=== PATIENT | female | born 1985 | race Caucasian/White ===

== ENCOUNTER 2017-07-19 14:12 | Emergency (ER) | payer MEDICAID, OTHER ==
[~2017-07-19] VITALS: Ht 154.9 cm; Wt 50.0 kg
[~2017-07-19 14:12] MED LIST: ACET500C5 PO; PREN1TAB49 PO
[2017-07-19 14:20] VITALS: Ht 154.9 cm; Wt 50.0 kg
--- NOTE | 2017-07-19 15:28 | ERD ---
ER Documentation Chief Complaint Date/Time DATE: 07/19/17 TIME: 15:21 Chief Complaint felt dizzy,garza after having "powder" sprayed in [place] for bed bugs HPI This is a 32 yo F who presents to ED with multiple complaints after potential exposure to powdered insecticide yesterday. Patients states that she has been complaining of bedbugs in her apartment for some time. Her landlord became very angry and had someone laid down which she thinks is powdered insecticide in the home along the wall boards, bathroom and beds. She states that this was done yesterday. Over the past 24 hours she has noted some mild headache and upset stomach. She states the symptoms are improved when she is not in the apartment. She states that this was laid down when her and her children were in the apartment. She denies any rash or difficulty breathing. She states the symptoms are improved upon arrival. She states that Department of Public Health was out yesterday and saw this but stated that they could not do anything for her. ROS All systems reviewed and are negative except as per history of present illness. Medications Home Meds Active Scripts Acetaminophen* (Tylophen*) 500 Mg Capsule, 1 CAP PO Q6H Y for PAIN, #30 CAP Prov:KEI SPARROW MD 05/14/15 Reported Medications Vits W-Ca,Fe,Fa(<1MG) () 1 Tab Tablet, 1 TAB PO DAILY 08/07/12 Allergies Allergies: Coded Allergies: No Known Allergy (Verified , 05/14/15) PMhx/Soc History of Surgery: No Anesthesia Reaction: No Hx Neurological Disorder: No Hx Respiratory Disorders: No Hx Cardiac Disorders: No Hx Psychiatric Problems: No Hx Miscellaneous Medical Probl: No Hx Alcohol Use: No Hx Substance Use: No Hx Tobacco Use: No FmHx Family History: No diabetes Physical Exam Vitals Vital Signs Date Time Temp Pulse Resp B/P Pulse Ox O2 Delivery O2 Flow Rate FiO2 07/19/17 14:20 98.1 92 18 130/67 99 Physical Exam General: Well developed, well nourished, no acute distress Head: Normocephalic, atraumatic. Eyes: Pupils equally reactive, EOM intact ENT: Moist mucous membranes Neck: Supple, no lymphadenopathy Respiratory: Lungs clear bilaterally, no distress Cardiovascular: RRR, no murmurs, rubs, or gallops Abdominal: Soft, non-tender, non-distended, no peritoneal signs : Deferred MSK: No edema, no unilateral swelling, 5/5 strength Neurologic: Alert and oriented, moving all extremities, normal speech, no focal weakness, no cerebellar signs Skin: No rash Psych: Normal mood Procedures/MDM This is a 32-year-old female who has been exposed to noxious stimuli. She does show me pictures that appear to be some white powdery substance laid about her apartment and around her batting. This is presumed to be some form of insecticide. However she does not know what was laid down and does not have contact information to her landlord at this time. It seems odd to me that this will be done with her and her children in the apartment. She states that the landlord was very upset and using profanity when laying the substance down. From a medical standpoint I do not believe the patient has significant disease. The patient likely has symptoms related to noxious stimuli without significant adverse event. I advised to clean clothing and bedding and lisa in the apartment and keep windows open for aeration. I would not recommend continued exposure to this substance. Additionally I would support her finding another apartment. She states that she is already contacted the department of public health. I will contact my clinical social worker to come speak to the patient and her family to see if there is something else that we can offer. I also told her that a secondary step would be to make a police report a formal complaint. These resources will be provided by her clinical social worker. At this time the patient is resting comfortably. I have attempted to reach out to the Poison Control Center but given that they cannot identify the substance further assistance cannot be provided. Departure Diagnosis: Primary Impression: Chemical exposure Condition: LUCINDA Holguin MD Jul 19, 2017 15:28
== END 2017-07-19 17:10 | disposition home or self-care (01) ==
LOC: FTE 14:12
DX: T65.91XA Toxic effect of unspecified substance, accidental (unintentional), initial encounter (principal)
CPT/HCPCS: 99282

== ENCOUNTER 2018-05-12 17:22 | Emergency (ER) | END 2018-05-12 18:56 | disposition home or self-care (01) ==

== ENCOUNTER 2018-06-09 20:32 | Emergency (ER) | END 2018-06-09 22:01 | disposition home or self-care (01) ==

== ENCOUNTER 2018-07-01 18:58 | Emergency (ER) | END 2018-07-01 21:15 | disposition home or self-care (01) ==

== ENCOUNTER 2018-07-08 19:19 | Emergency (ER) | END 2018-07-08 20:06 | disposition home or self-care (01) ==

== ENCOUNTER 2019-04-13 15:32 | Emergency (ER) | payer OTHER ==
[~2019-04-13] VITALS: Ht 152.4 cm; Wt 52.4 kg
[~2019-04-13 15:32] MED LIST changes: +ELIM TOP; +HC30CR25 TOP
[2019-04-13 16:24] VITALS: BP 101/63; PULSE 72; RESP 16; Ht 152.4 cm; Wt 52.4 kg
--- NOTE | 2019-04-13 16:41 | ERD ---
ER Documentation Chief Complaint Chief Complaint RASH, FEVERS, MALAISE & NASAL CONGESTION x3 DAYS HPI Patient is a 34-year-old male who presents with a rash. The patient is 1 of 7 people in the family that is being seen for similar rash. The patient has a rash to his hands, feet, and mouth. He has had this for the past few days. The patient has had no treatment as of yet. The family has not seen the primary doctor as of yet either. ROS All systems reviewed and are negative except as per history of present illness. Medications Home Meds Active Scripts Hydrocortisone* Topical (Hydrocortisone* Topical) 2.5%-28.3 Gm Cream..g., 1 APPLIC TOP BID for 5 Days, #1 TUB Prov:ILEANA PACK PA-C 07/08/18 Permethrin* (Elimite*) 5% Cr, 1 APPLIC TOP ONCE, #1 TUB Prov:OMAIRA ROBLEDOC 07/01/18 Hydrocortisone* Topical (Hydrocortisone* Topical) 2.5%-28.3 Gm Cream..g., 1 APPLIC TOP BID, #1 TUB Prov:ANDRADE KHAN 06/09/18 Permethrin* (Elimite*) 5% Cr, 1 APPLIC TOP ONCE, #1 TUB Prov:KRISTIAN VIGIL DO 05/12/18 Acetaminophen* (Tylophen*) 500 Mg Capsule, 1 CAP PO Q6H PRN for PAIN, #30 CAP Prov:KEI SPARROW MD 05/14/15 Reported Medications Vits W-Ca,Fe,Fa(<1MG) () 1 Tab Tablet, 1 TAB PO DAILY 08/07/12 Allergies Allergies: Coded Allergies: No Known Allergy (Verified , 05/14/15) PMhx/Soc Medical and Surgical Hx: pt denies Medical Hx, pt denies Surgical Hx History of Surgery: No Anesthesia Reaction: No Hx Neurological Disorder: No Hx Respiratory Disorders: No Hx Cardiac Disorders: No Hx Psychiatric Problems: No Hx Miscellaneous Medical Probl: No Hx Alcohol Use: No Hx Substance Use: No Hx Tobacco Use: No Smoking Status: Never smoker FmHx Family History: No diabetes Physical Exam Vitals Vital Signs Date Temp Pulse Resp B/P (MAP) Pulse Ox O2 O2 Flow FiO2 Time Delivery Rate 04/13/19 98.9 72 16 101/63 98 16:24 (76) Physical Exam Const: No acute distress Head: Atraumatic Eyes: Normal Conjunctiva ENT: Normal External Ears, Nose and Mouth. Neck: Full range of motion. No meningismus. Resp: Clear to auscultation bilaterally Cardio: Regular rate and rhythm, no murmurs Abd: Soft, non tender, non distended. Normal bowel sounds Skin: No petechiae or rashes Back: No midline or flank tenderness Ext: No cyanosis, or edema Neur: Awake and alert Psych: Normal Mood and Affect Procedures/MDM Patient has no obvious visible rash but says that she had a rash on her face this past week. The rest of the family is sick with coxsackievirus and I believe she likely has coxsackievirus. Patient will be discharged. I doubt serious bacterial or other serious viral illness. Departure Diagnosis: Primary Impression: Coxsackie viral disease Condition: Fair Patient Instructions: When Your Child Has Hand, Foot, and Mouth Disease Referrals: Your doctor Additional Instructions: Llame al doctor nombrado leobardo (Referral Sources) MAANA y nancy tye ALLIE PARA DENTRO DE TYE SEMANA. Dgale a la secretaria que nosotros le instruimos hacer esta allie.Avise o llame si cancino condicin se empeora antes de la allie. RADHA CASTELLON MD April 13, 2019 16:41
== END 2019-04-13 17:11 | disposition home or self-care (01) ==
LOC: FTE 15:32
DX: B34.1 Enterovirus infection, unspecified (principal)
CPT/HCPCS: 99282

== ENCOUNTER 2019-05-08 11:50 | Emergency (ER) | payer OTHER ==
[~2019-05-08] VITALS: Ht 162.6 cm; Wt 51.5 kg
[2019-05-08 11:59] VITALS: BP 100/54; PULSE 69; RESP 18; Ht 162.6 cm; Wt 51.5 kg
--- NOTE | 2019-05-08 12:22 | ERD ---
ER Documentation Chief Complaint Chief Complaint "heavy" vaginal bleeding and pelvic pain x yesterday HPI 34-year-old female , LMP 04/24/2019, presents to the emergency department, requesting to be evaluated for a possible , the patient reports mild spotting yesterday without pain, no dysuria, no abdominal pain, no fever or chills. ROS All systems reviewed and are negative except as per history of present illness. Medications Home Meds Active Scripts Hydrocortisone* Topical (Hydrocortisone* Topical) 2.5%-28.3 Gm Cream..g., 1 APPLIC TOP BID for 5 Days, #1 TUB Prov:ILEANA PACKC 07/08/18 Permethrin* (Elimite*) 5% Cr, 1 APPLIC TOP ONCE, #1 TUB Prov:OMAIRA ROBLEDO-C 07/01/18 Hydrocortisone* Topical (Hydrocortisone* Topical) 2.5%-28.3 Gm Cream..g., 1 APPLIC TOP BID, #1 TUB Prov:ANDRADE KHAN 06/09/18 Permethrin* (Elimite*) 5% Cr, 1 APPLIC TOP ONCE, #1 TUB Prov:KRISTIAN VIGIL DO 05/12/18 Acetaminophen* (Tylophen*) 500 Mg Capsule, 1 CAP PO Q6H PRN for PAIN, #30 CAP Prov:EKI SPARROW MD 05/14/15 Reported Medications Vits W-Ca,Fe,Fa(<1MG) () 1 Tab Tablet, 1 TAB PO DAILY 08/07/12 Allergies Allergies: Coded Allergies: No Known Allergy (Verified , 05/14/15) PMhx/Soc Medical and Surgical Hx: pt denies Medical Hx History of Surgery: No Anesthesia Reaction: No Hx Neurological Disorder: No Hx Respiratory Disorders: No Hx Cardiac Disorders: No Hx Psychiatric Problems: No Hx Miscellaneous Medical Probl: No Hx Alcohol Use: No Hx Substance Use: No Hx Tobacco Use: No FmHx Family History: No diabetes, No coronary disease Physical Exam Vitals Vital Signs Date Temp Pulse Resp B/P (MAP) Pulse Ox O2 O2 Flow FiO2 Time Delivery Rate 05/08/19 98.3 69 18 100/54 98 11:59 (69) Physical Exam Const: No acute distress Head: Atraumatic Eyes: Normal Conjunctiva ENT: Normal External Ears, Nose and Mouth. Neck: Full range of motion. No meningismus. Resp: Clear to auscultation bilaterally Cardio: Regular rate and rhythm, no murmurs Abd: Soft, non tender, non distended. Normal bowel sounds : Normal external genitalia, no cervical motion tenderness, no vaginal bleeding, no adnexal mass. Skin: No petechiae or rashes Back: No midline or flank tenderness Ext: No cyanosis, or edema Neur: Awake and alert Psych: Normal Mood and Affect Results 24 hrs Laboratory Tests Test 05/08/19 13:24 05/08/19 13:25 Bedside Urine pH (LAB) 6.0 Bedside Urine Protein (LAB) 1+ Bedside Urine Glucose (UA) Negative Bedside Urine Ketones (LAB) Trace Bedside Urine Blood 2+ Bedside Urine Nitrite (LAB) Negative Bedside Urine Leukocyte Esterase (L Negative POC Beta HCG, Qualitative NEGATIVE Departure Diagnosis: Primary Impression: Vaginal bleeding Additional Impression: Negative test Condition: Stable Additional Instructions: Thank you very much for allowing us to participate in your care. Your health and safety is our top priority at [facility]. The evaluation in the emergency department has been done to rule out an acute emergency. Chronic, bhu-kodp-ariccvkrwlh conditions may have not been evaluated; therefore, you need to follow up with a primary care provider in the next 48h. If symptoms persist, worsen or new symptoms develop, then patient should return to the ED immediately. Call your primary care doctor TOMORROW for an appointment during the next 2-4 days and bring all the information provided. Have prescriptions filled and follow precisely the directions on the label. If the symptoms get worse and your provider is unavailable, return to the Emergency Department immediately. LEON NUNN MD May 08, 2019 12:22
[2019-05-08] MEDS ORDERED: IBUP-1561 PO (13:57)
== END 2019-05-08 14:10 | disposition home or self-care (01) ==
LOC: FTE 11:50
DX: N93.9 Abnormal uterine and vaginal bleeding, unspecified (principal); Z32.02 Encounter for pregnancy test, result negative
CPT/HCPCS: 81003; 81025; Z7502; 99283

== ENCOUNTER 2019-05-17 15:40 | Emergency (ER) | payer OTHER ==
[~2019-05-17] VITALS: Ht 160 cm; Wt 52.5 kg
[~2019-05-17 15:40] MED LIST changes: +IBUP-1561 PO
[2019-05-17 15:50] VITALS: Ht 160 cm; Wt 52.5 kg
[2019-05-17] MEDS ORDERED: IBUPROFEN 600 MG TAB PO ONE (18:00)
[2019-05-17 18:02] VITALS: BP 98/53; PULSE 66; RESP 18
[2019-05-17] MEDS ORDERED: NITR-58 PO (19:32)
[2019-05-17] MEDS ORDERED: IBUP-1542 PO (19:32)
--- NOTE | 2019-05-17 19:41 | ERD ---
ER Documentation Chief Complaint Chief Complaint C/O VAGINAL PAIN, DYSURIA, MID. LOWER ABD. PAIN FOR 2 DAYS HPI Patient is a 34-year-old female who presents the ER for multiple complaints. She states the symptoms started 2 days ago. Patient states that she is having vaginal pain as well as dysuria. Patient denies any vaginal bleeding. Patient reports urinary frequency. She also reports suprapubic pain. She denies any fevers or chills. Patient denies nausea or vomiting. Patient also states she is having right-sided chestg pain. Patient describes the pain to be nonradiating, nonexertional. Patient denies any shortness of breath. Patient denies any left chest pain, left upper extremity pain, neck pain, diaphoresis, j aw pain, nausea, or LOC. Patient also reports pain in her bilateral legs into her lower back. She denies any falls or trauma. Patient denies any saddle anesthesia, urine incontinence or stool incontinence. Patient is not taking any medications for her pain. Patient denies any recent travel, history of DVT or PE, leg swelling. ROS All systems reviewed and are negative except as per history of present illness. Medications Home Meds Active Scripts Ibuprofen* (Motrin*) 600 Mg Tab, 600 MG PO Q6, #30 TAB Prov:OMAIRA ROBLEDO PA-C 05/17/19 Nitrofurantoin Monohyd Macrocr* (Macrobid*) 100 Mg Capsr, 100 MG PO BID for 5 Da ys, CAP Prov:OMAIRA ROBLEDO PA-C 05/17/19 Ibuprofen* (Motrin*) 400 Mg Tab, 400 MG PO Q6H PRN for PAIN AND OR ELEVATED TEMP, #20 TAB Prov:LEON NUNN MD 05/08/19 Hydrocortisone* Topical (Hydrocortisone* Topical) 2.5%-28.3 Gm Cream..g., 1 APPLIC TOP BID for 5 Days, #1 TUB Prov:ILEANA PACK PA-C 07/08/18 Permethrin* (Elimite*) 5% Cr, 1 APPLIC TOP ONCE, #1 TUB Prov:OMAIRA ROBLEDO PA-C 07/01/18 Hydrocortisone* Topical (Hydrocortisone* Topical) 2.5%-28.3 Gm Cream..g., 1 APPLIC TOP BID, #1 TUB Prov:ANDRADE KHAN 06/09/18 Permethrin* (Elimite*) 5% Cr, 1 APPLIC TOP ONCE, #1 TUB Prov:KRISTIAN VIGIL DO 05/12/18 Acetaminophen* (Tylophen*) 500 Mg Capsule, 1 CAP PO Q6H PRN for PAIN, #30 CAP Prov:KEI SPARROW MD 05/14/15 Reported Medications Vits W-Ca,Fe,Fa(<1MG) () 1 Tab Tablet, 1 TAB PO DAILY 08/07/12 Allergies Allergies: Coded Allergies: No Known Allergy (Verified , 05/14/15) PMhx/Soc History of Surgery: No Anesthesia Reaction: No Hx Neurological Disorder: No Hx Respiratory Disorders: No Hx Cardiac Disorders: No Hx Psychiatric Problems: No Hx Miscellaneous Medical Probl: Yes (HX MISCARRIAGE) Hx Alcohol Use: No Hx Substance Use: No Hx Tobacco Use: No FmHx Family History: No diabetes Physical Exam Vitals Vital Signs Date Temp Pulse Resp B/P (MAP) Pulse Ox O2 O2 Flow FiO2 Time Delivery Rate 05/17/19 66 18 98/53 (68) Room Air 18:02 05/17/19 99.0 71 18 97/56 (70) 99 15:50 Physical Exam GENERAL: Well-developed, well-nourished female. Appears in no acute distress. Speaking in full sentences. HEAD: Normocephalic, atraumatic. EYES: Pupils are equally reactive bilaterally. EOMs grossly intact. No conjunctival erythema. ENT: Moist mucous membranes. No uvula deviation. No kissing tonsils. NECK: Supple. No meningismus. Normal range of motion of the neck. LUNG: Clear to auscultation bilaterally. No rhonchi, wheezing, rales or coarse breath sounds. HEART: Regular rate and rhythm. No murmurs, rubs or gallops. Equal pulses in bilateral upper extremities. R CHEST WALL: Right chest wall is tender to palpation. Pain is reproducible. ABDOMEN: No scars, ecchymosis or rashes noted. Soft, and nondistended. Patient is tender to palpation in the suprapubic region. Positive bowel sounds in all four quadrants. No rebound tenderness, no guarding. (-) McBurney's point tenderness. No CVA tenderness. BACK: No midline tenderness. EXTREMITIES: Equal pulses bilaterally. No peripheral clubbing, cyanosis or edema. No unilateral leg swelling. NEUROLOGIC: Alert and oriented. Moving all four extremities without any diffic ulty. Normal speech. Steady gait. SKIN: Normal color. Warm and dry. No rashes or lesions. Result Diagram: 05/17/19 1746 05/17/19 1746 Results 24 hrs Laboratory Tests Test 05/17/19 17:46 05/17/19 17:52 White Blood Count 8.3 10^3/ul Red Blood Count 4.09 10^6/ul Hemoglobin 12.1 g/dl Hematocrit 37.9 % Mean Corpuscular Volume 92.7 fl Mean Corpuscular Hemoglobin 29.6 pg Mean Corpuscular Hemoglobin Concent 31.9 g/dl Red Cell Distribution Width 12.5 % Platelet Count 206 10^3/UL Mean Platelet Volume 9.7 fl Immature Granulocytes % 0.400 % Neutrophils % 76.2 % Lymphocytes % 16.8 % Monocytes % 5.3 % Eosinophils % 0.8 % Basophils % 0.5 % Nucleated Red Blood Cells % 0.0 /100WBC Immature Granulocytes # 0.030 10^3/ul Neutrophils # 6.3 10^3/ul Lymphocytes # 1.4 10^3/ul Monocytes # 0.4 10^3/ul Eosinophils # 0.1 10^3/ul Basophils # 0.0 10^3/ul Nucleated Red Blood Cells # 0.0 10^3/ul Urine Color YELLOW Urine Clarity CLEAR Urine pH 8.0 Urine Specific [place] 1.014 Urine Ketones NEGATIVE mg/dL Urine Nitrite NEGATIVE mg/dL Urine Bilirubin NEGATIVE mg/dL Urine Urobilinogen NEGATIVE mg/dL Urine Leukocyte Esterase TRACE Alva/ul Urine Microscopic RBC 2 /HPF Urine Microscopic WBC 34 /HPF Urine Squamous Epithelial Cells MODERATE /HPF Urine Bacteria FEW /HPF Urine Hemoglobin NEGATIVE mg/dL Urine Glucose NEGATIVE mg/dL Urine Total Protein NEGATIVE mg/dl Sodium Level 142 mmol/L Potassium Level 4.0 mmol/L Chloride Level 105 mmol/L Carbon Dioxide Level 29 mmol/L Anion Gap 8 Blood Urea Nitrogen 12 mg/dl Creatinine 0.71 mg/dl Est Glomerular Filtrat Rate mL/min > 60 mL/min Glucose Level 74 mg/dl Calcium Level 8.7 mg/dl Troponin I < 0.012 ng/ml POC Beta HCG, Qualitative NEGATIVE Current Medications Medications Dose Sig/Cosmo Start Time Status Last (Trade) Ordered Route PRN Stop Time Admin Dose Reason Admin Ibuprofen 600 mg ONCE ONCE 05/17/19 DC 05/17/19 (Motrin) PO 18:00 18:00 05/17/19 18:01 Procedures/MDM ED COURSE: The patient was stable throughout ED course. I kept the patient and/or family informed of laboratory and diagnostic imaging results throughout the ED course. EKG: Read by Dr. Gaines, attending physician. EKG shows normal sinus rhythm at a rate of [address] elevations or T wave changes were noted. DIAGNOSTIC IMAGING: Read by radiologist. Patient: SJ QUIGLEY : 1985 Age: 34 Sex: F MR #: [id number] DOS: 05/17/19 1737 Ordering MD: OMAIRA ROBLEDO PA-C Location: [facility] Room/Bed: PROCEDURE: XR Chest. CLINICAL INDICATION: Chest Pain. TECHNIQUE: Single view chest x-ray. COMPARISON: None. FINDINGS: Right The cardiomediastinal silhouette is normal in size and contour. No consolidation, pleural effusion, or pneumothorax is seen. The osseous structures are unremarkable. IMPRESSION: 1. No radiographic evidence of an acute cardiopulmonary process. RPTAT: BBDD Physician Steffany Date Time Electronically viewed and signed by Physician Steffany on 05/17/2019 19:20 RP/ CC: OMAIRA ROBLEDO PA-C [id number] PROCEDURES: None. MEDICATIONS GIVEN: Ibuprofen Patient tolerated medication well with no adverse reactions. Patient reported improvement in pain. MEDICAL DECISION MAKING: This is a 34-year-old female presents to the ER for concerns of multiple complaints. Patient reports dysuria, urinary frequency, suprapubic pain, right- sided chest pain, lower back pain, bilateral leg pain. Patient denied any leg swelling, recent surgeries, travel. Review of the patient's [facility] report shows that patient has had 6 visits to the emergency department this year. Vital signs were reviewed. Patient was afebrile. Patient was not hypoxic. Cardiac exam was normal. Lung exam was normal. Pain was reproduced with palpation. Blood work was obtained. CBC showed no evidence of systemic infection or anemia. CMP showed no severe electrolyte abnormalities, acidosis, alkalosis, renal injury. Troponin is within normal limits. EKG was within normal limits. Low suspicion for acute coronary syndrome, arrhythmia or pericarditis. CXR was within normal limits. Low suspicion for aortic dissection, pneumothorax, pneumonia or pleural effusion. PERC score 0. Low suspicion for PE. Heart score was noted to be low. Low suspicion for acute adverse cardiac event in the next 6 weeks. Urine test was negative. UA showed trace leukocyte Estrace. Given that patient is reporting dysuria, patient will be treated at this time for concerns of UTI. Low suspicion for pyelonephritis, nephrolithiasis, . PRESCRIPTIONS: Macrobid, ibuprofen DISCHARGE: At this time, patient is stable for discharge and outpatient management. I have instructed the patient to follow-up with his/her primary care physician in 1-2 days. If symptoms persist, patient may need to see a specialist for further examinations and testing. I have instructed the patient to promptly return to the ER at any time for any new or worsening symptoms including increased increased pain, fever, nausea, vomiting, numbness, weakness, diaphoresis or LOC. The patient and/or family expressed understanding of and agreement with this plan. All questions were answered. Home care instructions were provided. Disclaimer: Inadvertent spelling and grammatical errors are likely due to EHR/dictation software use and do not reflect on the overall quality of patient care. Also, please note that the electronic time recorded on this note does not necessarily reflect the actual time of the patient encounter. Departure Diagnosis: Primary Impression: Multiple complaints Additional Impressions: Breast pain, right Leg pain Laterality: bilateral Qualified Codes: M79.604 - Pain in right leg; M79.605 - Pain in left leg UTI (urinary tract infection) Urinary tract infection type: site unspecified Hematuria presence: without hematuria Qualified Codes: N39.0 - Urinary tract infection, site not specified Back pain Back pain location: back pain in unspecified location Chronicity: unspecified Back pain laterality: unspecified Qualified Codes: M54.9 - Dorsalgia, unspecified Condition: Fair Patient Instructions: Understanding Urinary Tract Infections (UTIs), Back Pain (Acute Or Chronic) Referrals: COMMUNITY CLINICS YOU HAVE RECEIVED A MEDICAL SCREENING EXAM AND THE RESULTS INDICATE THAT YOU DO NOT HAVE A CONDITION THAT REQUIRES URGENT TREATMENT IN THE EMERGENCY DEPARTMENT. FURTHER EVALUATION AND TREATMENT OF YOUR CONDITION CAN WAIT UNTIL YOU ARE SEEN IN YOUR DOCTORS OFFICE WITHIN THE NEXT 1-2 DAYS. IT IS YOUR RESPONSIBILITY TO MAKE AN APPOINTMENT FOR FOLOW-UP CARE. IF YOU HAVE A PRIMARY DOCTOR --you should call your primary doctor and schedule an appointment IF YOU DO NOT HAVE A PRIMARY DOCTOR YOU CAN CALL OUR PHYSICIAN REFERRAL HOTLINE AT IF YOU CAN NOT AFFORD TO SEE A PHYSICIAN YOU CAN CHOSE FROM THE FOLLOWING [facility] [address] [email or web address]. [facility] [email or web address] [facility] [address] [facility]. [facility] [address] [facility]. [facility] [address] [facility]. [facility] [address] [facility]. [facility] YOU HAVE RECEIVED A MEDICAL SCREENING EXAM AND THE RESULTS INDICATE THAT YOU DO NOT HAVE A CONDITION THAT REQUIRES URGENT TREATMENT IN THE EMERGENCY DEPARTMENT. FURTHER EVALUATION AND TREATMENT OF YOUR CONDITION CAN WAIT UNTIL YOU ARE SEEN IN YOUR DOCTORS OFFICE WITHIN THE NEXT 1-2 DAYS. IT IS YOUR RESPONSIBILITY TO MAKE AN APPOINTMENT FOR FOLOW-UP CARE. IF YOU HAVE A PRIMARY DOCTOR --you should call your primary doctor and schedule and appointment IF YOU DO NOT HAVE A PRIMARY DOCTOR YOU CAN CALL OUR PHYSICIAN REFERRAL HOTLINE AT . IF YOU CAN NOT AFFORD TO SEE A PHYSICIAN YOU CAN CHOSE FROM THE FOLLOWING [facility] INSTITUTIONS: [facility] [address] [place] [address] [facility] [address] [place] [address] [facility] + [facility] [address] [place] [address] [employer] [place] [address] [facility] [address] [place] [address] OFFICE FAX , KEZIA [address] [place] [address] [address] QUIN[place]NA, [place] [address] [place] [address] DR MARTINEZ, [facility] [address] [facility], [address], [place] [address] DR SHIPLEY, [facility] [address] [place] [address] [facility] [address] [place] [address] [address] [facility] [address] - [address] PIERRE, PARKER [address], [place] [address] DR GILMORE, VICKIE [address] [facility]. [address], [place] [address] DR BRITO, FARID [address] [place], [place] [id number] Additional Instructions: Llame al doctor MAANA y nancy ashok ALLIE PARA DENTRO DE 1-2 KEITA.Dgale a la secretaria que nosotros le instruimos hacer esta allie.Avise o llame si cancino condicin se empeora antes de la allie. Regresa aqui si peor o no mejor. OMAIRA ROBLEDO PA-C May 17, 2019 19:41
== END 2019-05-17 19:40 | disposition home or self-care (01) ==
LOC: FTE 15:40
DX: N39.0 Urinary tract infection, site not specified (principal); N64.4 Mastodynia; M79.605 Pain in left leg
CPT/HCPCS: 36415; 71045; 80048; 81001; 81025; 84484; 85025; 93005; Z7502; Z7610